=== PATIENT | female | born 1975 | race African-American/Black ===

== ENCOUNTER 2018-05-26 20:12 | Emergency (ER) | payer MEDICAID ==
[~2018-05-26] VITALS: Ht 172.7 cm; Wt 91.6 kg
[2018-05-26 20:59] VITALS: BP 138/75
[2018-05-26] MEDS ORDERED: ACETAMINOPHEN ES 500 MG TABLET PO ONE (22:00)
[2018-05-26] MEDS ORDERED: ACETAMINOPHEN ES 500 MG TABLET ONE (22:10)
== END 2018-05-26 22:35 | disposition home or self-care (01) ==
LOC: ER 20:17
DX: S44.32XA Injury of axillary nerve, left arm, initial encounter (principal); E28.2 Polycystic ovarian syndrome; Z98.890 Other specified postprocedural states; Z88.6 Allergy status to analgesic agent; X58.XXXA Exposure to other specified factors, initial encounter; Y93.89 Activity, other specified; Y92.89 Other specified places as the place of occurrence of the external cause; Y99.8 Other external cause status

== ENCOUNTER 2020-02-26 16:53 | Emergency (ER) | payer SELFPAY ==
[~2020-02-26] VITALS: Ht 170.2 cm; Wt 74.8 kg
[2020-02-26 17:18] VITALS: BP 134/81
== END 2020-02-26 18:55 | disposition home or self-care (01) ==
LOC: ER 17:21
DX: R42 Dizziness and giddiness (principal); R51.9 Headache, unspecified; Z98.890 Other specified postprocedural states; Z88.6 Allergy status to analgesic agent; Z88.5 Allergy status to narcotic agent

== ENCOUNTER 2022-02-11 14:19 | Emergency (ER) | payer MEDICAID ==
[~2022-02-11] VITALS: Ht 172.7 cm; Wt 81.6 kg
--- NOTE | 2022-02-11 14:52 | NUR ---
PT WALKED IN C/O RIGHT SIDED HEADACHE AND LEFT SIDED ARM WEAKNESS X 2 WEEKS. DENIES TRAUMA. PT AMBULATED TO BED WITH STEADY GATE. AAOX4. AWAITING MD ORDERS.
--- NOTE | 2022-02-11 14:53 | NUR ---
DR. HENRY AT BEDSIDE FOR EVAL
--- NOTE | 2022-02-11 16:24 | NUR ---
Patient discharged to home in stable condition. Written and verbal after care instructions given. Patient verbalizes understanding of instruction.
[2022-02-11 16:25] VITALS: BP 120/82
== END 2022-02-11 16:26 | disposition home or self-care (01) ==
LOC: ER 14:29
DX: R51.9 Headache, unspecified (principal); M25.512 Pain in left shoulder; Z88.8 Allergy status to other drugs, medicaments and biological substances; Z60.2 Problems related to living alone
CPT/HCPCS: 70450-TC; 73030-TC

== ENCOUNTER 2024-08-29 20:49 | Emergency (ER) | payer MEDICAID ==
[~2024-08-29] VITALS: Ht 172.7 cm; Wt 95.3 kg
[2024-08-29 22:40] LABS: APPEARANCE,URINE CLEAR (CLEAR); BLOOD, URINE 2+ Ery/uL (NEGATIVE); LEUKOCYTE ESTERASE ,URINE NEGATIVE (NEGATIVE); NITRITE, URINE NEGATIVE (NEGATIVE); UGLUCOSE NEGATIVE (NEGATIVE)
[2024-08-29 22:56] LABS: ADD URINE CULTURE YES; SQUAMOUS EPITHELIAL CELL,UR Many /HPF (None Seen)
[2024-08-29] MEDS ORDERED: CEPHALEXIN MONOHYDRATE 500 MG CAPSULE PO ONE (23:02)
[2024-08-29] MEDS: CEPHALEXIN MONOHYDRATE 500 MG CAPSULE PO ONE (23:05)
[2024-08-29] MEDS ORDERED: CEPH-570 PO (23:11)
[2024-08-29 23:17] VITALS: BP 132/84; TEMP 98.9; O2SAT 99
== END 2024-08-29 23:18 | disposition home or self-care (01) ==
LOC: ER 20:56
DX: N39.0 Urinary tract infection, site not specified (principal); R05.9 Cough, unspecified; R07.9 Chest pain, unspecified; Z88.8 Allergy status to other drugs, medicaments and biological substances; Z88.5 Allergy status to narcotic agent; Z60.2 Problems related to living alone; Z98.890 Other specified postprocedural states
CPT/HCPCS: 71045-TC; 81001; 87086-TC